=== PATIENT | male | born 1955 | race Asian ===

== ENCOUNTER 2017-03-23 22:11 | Inpatient (IN) | payer MEDICAID, OTHER ==
[~2017-03-23] VITALS: Ht 167.6 cm; Wt 75.5 kg
[2017-03-23] MEDS ORDERED: SODIUM CHLORIDE 0.9% 1,000 ML IV ONE (22:39)
[2017-03-23] MEDS ORDERED: MORPHINE SULFATE 4 MG/ML, 1ML ONE (22:57)
[2017-03-23] MEDS ORDERED: ONDANSETRON 2MG/ML, 2ML ONE (22:57)
[2017-03-23] MEDS ORDERED: ONDANSETRON 2MG/ML, 2ML IVPush ONE (23:00)
[2017-03-23] MEDS ORDERED: SODIUM CHLORIDE FLUSH 10ML SYR IVF ONE (23:00)
[2017-03-23] MEDS ORDERED: MORPHINE SULFATE 4 MG/ML, 1ML IVPush PRN (23:00)
[2017-03-23] MEDS ORDERED: SODIUM CHLORIDE 0.9% 1,000ML IVBOLUS ONE (23:00)
[2017-03-23 23:35] LABS: BLOOD UREA NITROGEN 25 mg/dL (7-18)
[2017-03-23 23:36] LABS: ASPARTATE AMINO TRANSFERASE 42 U/L (15-37)
[2017-03-23 23:40] LABS: DIFF TOTAL CELLS COUNTED 100 CELL DIFF
[2017-03-23 23:42] LABS: VERIFY COUNTS? YES
[2017-03-23 23:43] LABS: LARGE PLATELETS 1+
[2017-03-24] MEDS ORDERED: CEFTRIAXONE 1,000 MG in SODIUM CHLORIDE 0.9% 50 ML IV ONE
[2017-03-24] MEDS ORDERED: METRONIDAZOLE PMX 500MG/100ML 100 ML ONE (00:08)
[2017-03-24] MEDS ORDERED: CEFTRIAXONE PMX 1GM/50ML 50 ML ONE (00:08)
[2017-03-24] MEDS ORDERED: OMNIPAQUE 350 MG/ML, 100ML BOTTLE ONE (00:27)
[2017-03-24] MEDS ORDERED: METRONIDAZOLE PMX 500MG/100ML 100 ML IV ONE (00:30)
[2017-03-24] MEDS ORDERED: SODIUM CHLORIDE 0.9% 1,000ML IVBOLUS ONE ×2 (00:30→02:00)
[2017-03-24] MEDS ORDERED: HEPARIN 25,000 UNITS/500ML PMX 500 ML IV PRN (01:30)
[2017-03-24] MEDS ORDERED: HEPARIN 5,000 UNITS/ML, 1ML IV ONE (01:30)
[2017-03-24] MEDS ORDERED: HEPARIN 5,000 UNITS/ML, 1ML ONE (01:38)
[2017-03-24] MEDS ORDERED: HEPARIN 25,000 UNITS/500ML PMX 500 ML ONE (01:38)
[2017-03-24] MEDS ORDERED: BISACODYL 10 MG SUPP PR PRN (02:00)
[2017-03-24] MEDS ORDERED: morphine SULFATE 10 MG/ML, 1ML IVPush PRN (02:00)
[2017-03-24] MEDS ORDERED: GLUCAGON 1 MG IM PRN (02:00)
[2017-03-24] MEDS ORDERED: ONDANSETRON 2MG/ML, 2ML IVPush PRN (02:00)
[2017-03-24] MEDS ORDERED: ACETAMINOPHEN 325 MG TABLET PO PRN (02:00)
[2017-03-24] MEDS ORDERED: DEXTROSE 50%, 50ML SYRINGE IVPush PRN (02:00)
[2017-03-24] MEDS ORDERED: DEXTROSE 4 GM TAB.CHEW PO PRN (02:00)
[2017-03-24] MEDS ORDERED: LIDOCAINE 1%, 20ML ONE (02:08)
[2017-03-24] MEDS: NS + 20MEQ KCL 1,000 ML IV SCH ×2 (03:40→11:41)
[2017-03-24] MEDS: MEROPENEM 1 GM in SODIUM CHLORIDE 0.9% 50 ML IV SCH ×3 (03:40→17:31)
[2017-03-24] MEDS: INSULIN ASPART 100 UNITS/ML, PEN SQ-INSULIN SCH ×5 (03:42→21:16)
[2017-03-24 05:26] LABS: BLOOD UREA NITROGEN 19 mg/dL (7-18)
[2017-03-24] MEDS ORDERED: ASPIRIN 325 MG TABLET PO ONE (05:30)
[2017-03-24 06:27] LABS: IS PT STATUS REG ER OR PRE ER? NO
[2017-03-24] MEDS: SODIUM CHLORIDE FLUSH 10ML SYR IVF SCH ×2 (09:53→21:16)
[2017-03-24] MEDS: HEPARIN 5,000 UNITS/ML, 1ML IV PRN ×2 (10:45→17:25)
[2017-03-24 10:46] LABS: IS PT STATUS REG ER OR PRE ER? NO
[2017-03-24 11:17] LABS: DIFF TOTAL CELLS COUNTED 100 CELL DIFF
[2017-03-24 11:39] LABS: VERIFY COUNTS? YES
[2017-03-24] MEDS ORDERED: VANCOMYCIN PER PHARMACY MC PRN (13:00)
[2017-03-24] MEDS ORDERED: PHARMACOKINETIC MONITORING MC PRN (13:30)
[2017-03-24] MEDS ORDERED: PHARMACOKINETIC CONSULTATION MC ONE (13:30)
[2017-03-24] MEDS ORDERED: VANCOMYCIN 1,500 MG in SODIUM CHLORIDE 0.9% 250 ML IV SCH (14:00)
[2017-03-25] MEDS: HEPARIN 5,000 UNITS/ML, 1ML IV PRN ×2 (01:01→07:05)
[2017-03-25] MEDS: MEROPENEM 1 GM in SODIUM CHLORIDE 0.9% 50 ML IV SCH ×2 (01:02→10:27)
[2017-03-25] MEDS: INSULIN ASPART 100 UNITS/ML, PEN SQ-INSULIN SCH ×4 (05:59→23:44)
[2017-03-25] MEDS: VANCOMYCIN 1,500 MG in SODIUM CHLORIDE 0.9% 250 ML IV SCH (06:17)
[2017-03-25] MEDS: SODIUM CHLORIDE FLUSH 10ML SYR IVF SCH ×2 (07:05→20:45)
[2017-03-25 07:20] LABS: DIFF TOTAL CELLS COUNTED 100 CELL DIFF
[2017-03-25 07:35] LABS: VERIFY COUNTS? YES
[2017-03-25] MEDS: SODIUM CHLORIDE 0.9% 1,000 ML IV SCH (10:27)
[2017-03-25 10:39] LABS: HEPATITIS C VIRUS ANTIBODY Nonreactive (Nonreactive)
[2017-03-25] MEDS ORDERED: FENTANYL PF 250 MCG/5ML ONE ×3 (13:35→15:43)
[2017-03-25] MEDS ORDERED: MIDAZOLAM 1 MG/ML, 2ML ONE (13:35)
[2017-03-25] MEDS ORDERED: ROCURONIUM 10 MG/ML ONE (14:10)
[2017-03-25] MEDS ORDERED: ONDANSETRON 2MG/ML, 2ML ONE (14:10)
[2017-03-25] MEDS ORDERED: PROPOFOL 10 MG/ML, 20ML ONE (14:10)
[2017-03-25] MEDS ORDERED: GLYCOPYRROLATE 0.2MG/1ML ONE (14:10)
[2017-03-25] MEDS ORDERED: NEOSTIGMINE 1 MG/ML, 10ML ONE (14:10)
[2017-03-25] MEDS ORDERED: HYDROmorphone 1 MG/ML, 1ML IV PRN (16:00)
[2017-03-25] MEDS ORDERED: EPHEDRINE 50 MG/ML, 1ML IVPush PRN (16:00)
[2017-03-25] MEDS ORDERED: ONDANSETRON 2MG/ML, 2ML IVPush PRN (16:00)
[2017-03-25] MEDS ORDERED: FENTANYL PF 100 MCG/2ML IV PRN (16:00)
[2017-03-25] MEDS ORDERED: MIDAZOLAM 1 MG/ML, 2ML IV PRN (16:00)
[2017-03-25] MEDS ORDERED: PROMETHAZINE 25 MG/ML, 1ML IV PRN (16:00)
[2017-03-25] MEDS: MEROPENEM 1 GM in SODIUM CHLORIDE 0.9% 100 ML IV SCH (17:24)
[2017-03-25] MEDS ORDERED: HEPARIN 25,000 UNITS/500ML PMX 500 ML ONE (19:56)
[2017-03-25] MEDS ORDERED: FENTANYL PF 2,500 MCG in SODIUM CHLORIDE 0.9% 200 ML IV PRN (20:00)
[2017-03-25] MEDS ORDERED: HEPARIN 5,000 UNITS/ML, 1ML IV ONE (21:00)
[2017-03-25] MEDS ORDERED: HEPARIN 25,000 UNITS/500ML PMX 500 ML IV PRN (21:00)
[2017-03-25] MEDS ORDERED: HEPARIN 5,000 UNITS/ML, 1ML IV PRN (21:00)
[2017-03-26] MEDS: VANCOMYCIN 1,500 MG in SODIUM CHLORIDE 0.9% 250 ML IV SCH (00:08)
[2017-03-26] MEDS: SODIUM CHLORIDE 0.9% 1,000 ML IV SCH ×3 (00:09→22:54)
[2017-03-26] MEDS: MEROPENEM 1 GM in SODIUM CHLORIDE 0.9% 100 ML IV SCH (02:29)
[2017-03-26 04:00] VITALS: BP 118/55
[2017-03-26 06:04] LABS: ASPARTATE AMINO TRANSFERASE 33 U/L (15-37); BLOOD UREA NITROGEN 18 mg/dL (7-18)
[2017-03-26 06:11] LABS: DIFF TOTAL CELLS COUNTED 100 CELL DIFF
[2017-03-26] MEDS: INSULIN ASPART 100 UNITS/ML, PEN SQ-INSULIN SCH ×4 (06:11→22:36)
[2017-03-26 07:37] LABS: VERIFY COUNTS? YES
[2017-03-26] MEDS: SODIUM CHLORIDE FLUSH 10ML SYR IVF SCH ×2 (09:00→22:52)
[2017-03-26] MEDS ORDERED: ARGATROBAN/NACL 50 MG/50 ML 50 ML IV SCH (10:00)
[2017-03-26] MEDS: PIPERACILLIN/TAZO/PMX 3.375GM 50 ML IV SCH ×3 (10:53→22:52)
[2017-03-26 13:13] VITALS: BP 124/69
[2017-03-26] MEDS: ARGATROBAN/NACL 50 MG/50 ML 50 ML IV SCH ×2 (15:52→23:43)
[2017-03-26 16:06] VITALS: BP 124/65
[2017-03-26 18:58] VITALS: BP 114/54
[2017-03-27 02:14] VITALS: BP 132/66
[2017-03-27 05:07] LABS: ASPARTATE AMINO TRANSFERASE 46 U/L (15-37); BLOOD UREA NITROGEN 16 mg/dL (7-18)
[2017-03-27] MEDS: PIPERACILLIN/TAZO/PMX 3.375GM 50 ML IV SCH ×4 (05:16→22:55)
[2017-03-27] MEDS: INSULIN ASPART 100 UNITS/ML, PEN SQ-INSULIN SCH ×4 (05:17→20:40)
[2017-03-27] MEDS: SODIUM CHLORIDE 0.9% 1,000 ML IV SCH ×3 (05:20→17:17)
[2017-03-27 05:54] LABS: DIFF TOTAL CELLS COUNTED 100 CELL DIFF
[2017-03-27 05:57] LABS: VERIFY COUNTS? YES
[2017-03-27 05:58] LABS: ANISOCYTOSIS 1+
[2017-03-27 06:28] VITALS: BP 129/61
[2017-03-27] MEDS ORDERED: OXYcodone 5 MG/5 ML ORAL.SOL UDC PO PRN (09:30)
[2017-03-27] MEDS: ARGATROBAN/NACL 50 MG/50 ML 50 ML IV SCH (09:55)
[2017-03-27] MEDS: FAMOTIDINE 20 MG TABLET PO SCH ×2 (11:45→20:39)
[2017-03-27] MEDS: SODIUM CHLORIDE FLUSH 10ML SYR IVF SCH ×2 (11:45→20:38)
[2017-03-27 13:27] VITALS: BP 135/73
[2017-03-27 20:36] VITALS: BP 144/82
[2017-03-28 01:54] VITALS: BP 132/72
[2017-03-28] MEDS: ARGATROBAN/NACL 50 MG/50 ML 50 ML IV SCH ×2 (04:50→10:00)
[2017-03-28] MEDS: PIPERACILLIN/TAZO/PMX 3.375GM 50 ML IV SCH ×4 (04:52→23:12)
[2017-03-28 05:07] LABS: BLOOD UREA NITROGEN 12 mg/dL (7-18)
[2017-03-28 05:13] LABS: ASPARTATE AMINO TRANSFERASE 43 U/L (15-37)
[2017-03-28] MEDS: INSULIN ASPART 100 UNITS/ML, PEN SQ-INSULIN SCH ×4 (05:18→23:17)
[2017-03-28 07:18] VITALS: BP 123/72
[2017-03-28] MEDS: SODIUM CHLORIDE FLUSH 10ML SYR IVF SCH ×2 (09:35→20:29)
[2017-03-28] MEDS: FAMOTIDINE 20 MG TABLET PO SCH ×2 (09:35→20:29)
[2017-03-28] MEDS ORDERED: POTASSIUM CHLORIDE 40 MEQ in SODIUM CHLORIDE 0.9% 500 ML IV ONE (12:00)
[2017-03-28 12:14] VITALS: BP 114/68
[2017-03-28 20:19] VITALS: BP 123/57
[2017-03-28] MEDS: SODIUM CHLORIDE 0.9% 1,000 ML IV SCH (23:19)
[2017-03-29 02:23] VITALS: BP 126/67
[2017-03-29] MEDS: ARGATROBAN/NACL 50 MG/50 ML 50 ML IV SCH ×2 (03:32→18:12)
[2017-03-29] MEDS: INSULIN ASPART 100 UNITS/ML, PEN SQ-INSULIN SCH ×4 (05:30→23:19)
[2017-03-29 05:41] LABS: BLOOD UREA NITROGEN 9 mg/dL (7-18)
[2017-03-29] MEDS: PIPERACILLIN/TAZO/PMX 3.375GM 50 ML IV SCH ×4 (05:50→23:17)
[2017-03-29 07:05] VITALS: BP 108/68
[2017-03-29] MEDS ORDERED: POTASSIUM CHLORIDE 20 MEQ TAB.ER.PRT PO ONE (08:30)
[2017-03-29] MEDS: FAMOTIDINE 20 MG TABLET PO SCH ×2 (09:35→20:35)
[2017-03-29] MEDS: SODIUM CHLORIDE FLUSH 10ML SYR IVF SCH ×2 (09:35→20:35)
[2017-03-29] MEDS: FUROSEMIDE 20 MG TABLET PO SCH ×2 (10:38→20:35)
[2017-03-29] MEDS: SODIUM CHLORIDE 0.9% 1,000 ML IV SCH (10:38)
[2017-03-29] MEDS ORDERED: POTASSIUM CHLORIDE 40 MEQ in SODIUM CHLORIDE 0.9% 500 ML IV ONE (12:00)
[2017-03-29 13:00] VITALS: BP 113/81
[2017-03-29 14:07] LABS: ANA DIRECT Negative (Negative); COMPLEMENT C3 140 mg/dL (82-167); COMPLEMENT C4 26 mg/dL (14-44); INTERMYOFIBRILLAR AB Negative (Neg:<1:20); MITOCHONDRIAL (M2) AB 5.3 Units (0.0-20.0); PARIETAL CELL AB 2.8 Units (0.0-20.0); PROTEINASE 3 (PR-3) AB <3.5 U/mL (0.0-3.5); RA LATEX TURBIDITY <10.0 IU/mL (0.0-13.9); SARCOLEMMA AB Negative (Neg:<1:20); SJOGREN'S SS-A AB <0.2 AI (0.0-0.9); STRIATION AB Negative (Neg:<1:40); THYROID PEROXIDASE (TPO) AB 325 IU/mL (0-34)
[2017-03-29 20:32] VITALS: BP 143/75
[2017-03-29] MEDS: POTASSIUM CHLORIDE 10 MEQ TABLET.ER PO SCH (20:35)
[2017-03-30 02:50] VITALS: BP 130/73
[2017-03-30] MEDS: SODIUM CHLORIDE 0.9% 1,000 ML IV SCH (05:13)
[2017-03-30] MEDS: PIPERACILLIN/TAZO/PMX 3.375GM 50 ML IV SCH ×4 (05:13→23:04)
[2017-03-30 06:03] LABS: BLOOD UREA NITROGEN 10 mg/dL (7-18)
[2017-03-30] MEDS: INSULIN ASPART 100 UNITS/ML, PEN SQ-INSULIN SCH ×4 (06:16→23:05)
[2017-03-30] MEDS: ARGATROBAN/NACL 50 MG/50 ML 50 ML IV SCH ×4 (06:17→21:30)
[2017-03-30 06:42] VITALS: BP 122/74
[2017-03-30] MEDS: SODIUM CHLORIDE FLUSH 10ML SYR IVF SCH ×2 (08:13→21:34)
[2017-03-30] MEDS: FAMOTIDINE 20 MG TABLET PO SCH ×2 (08:13→21:34)
[2017-03-30] MEDS: POTASSIUM CHLORIDE 10 MEQ TABLET.ER PO SCH ×2 (08:14→21:34)
[2017-03-30] MEDS: FUROSEMIDE 20 MG TABLET PO SCH ×2 (08:14→21:34)
[2017-03-30] MEDS ORDERED: ARGATROBAN/NACL 50 MG/50 ML 50 ML IV SCH ×2 (10:00→19:00)
[2017-03-30 14:23] VITALS: BP 99/69
[2017-03-30 18:40] VITALS: BP 94/59
[2017-03-31 02:16] VITALS: BP 109/64
[2017-03-31] MEDS: ARGATROBAN/NACL 50 MG/50 ML 50 ML IV SCH (03:27)
[2017-03-31] MEDS: PIPERACILLIN/TAZO/PMX 3.375GM 50 ML IV SCH ×4 (05:37→22:49)
[2017-03-31] MEDS: INSULIN ASPART 100 UNITS/ML, PEN SQ-INSULIN SCH ×4 (05:39→22:49)
[2017-03-31] MEDS ORDERED: ARGATROBAN 250 MG in SODIUM CHLORIDE 0.9% 250 ML IV SCH (07:30)
[2017-03-31] MEDS: POTASSIUM CHLORIDE 10 MEQ TABLET.ER PO SCH ×2 (09:01→20:25)
[2017-03-31] MEDS: SODIUM CHLORIDE FLUSH 10ML SYR IVF SCH ×2 (09:01→20:25)
[2017-03-31] MEDS: FUROSEMIDE 20 MG TABLET PO SCH ×2 (09:02→20:25)
[2017-03-31] MEDS: FAMOTIDINE 20 MG TABLET PO SCH ×2 (09:02→20:25)
[2017-03-31 09:04] VITALS: BP 101/65
[2017-03-31 13:49] VITALS: BP 127/73
[2017-03-31 16:06] LABS: FACTOR II DNA ANALYSIS Negative (.)
[2017-03-31] MEDS: SODIUM CHLORIDE 0.9% 1,000 ML IV SCH ×2 (19:30→23:05)
[2017-03-31 22:53] VITALS: BP 117/66
[2017-04-01 01:23] VITALS: BP 125/73
[2017-04-01] MEDS: INSULIN ASPART 100 UNITS/ML, PEN SQ-INSULIN SCH (05:18)
[2017-04-01] MEDS: PIPERACILLIN/TAZO/PMX 3.375GM 50 ML IV SCH (05:18)
[2017-04-01 05:55] LABS: BLOOD UREA NITROGEN 15 mg/dL (7-18)
[2017-04-01] MEDS ORDERED: ARGATROBAN 250 MG in SODIUM CHLORIDE 0.9% 250 ML IV SCH ×2 (05:57→13:00)
[2017-04-01] MEDS: SODIUM CHLORIDE FLUSH 10ML SYR IVF SCH (08:04)
[2017-04-01] MEDS: FAMOTIDINE 20 MG TABLET PO SCH (08:04)
[2017-04-01] MEDS: FUROSEMIDE 20 MG TABLET PO SCH (08:04)
[2017-04-01] MEDS: POTASSIUM CHLORIDE 10 MEQ TABLET.ER PO SCH (08:04)
[2017-04-01 09:00] VITALS: BP 122/72
[2017-04-01] MEDS ORDERED: [UNRECOGNIZED DRUG - REMARK] MC ONE (09:30)
[2017-04-01] MEDS ORDERED: METF500T4 PO (10:43)
[2017-04-01] MEDS ORDERED: LEVO750T26 PO (10:43)
[2017-04-01] MEDS ORDERED: APIX5TAB PO (10:43)
[2017-04-01] MEDS ORDERED: TRAM50TA2 PO (10:48)
[2017-04-01 23:06] LABS: APTT 31.2 sec (.); PROTHROMBIN TIME 12.5 sec (.)
== END 2017-04-01 14:00 | disposition home or self-care (01) | DRG 853 ==
LOC: ED 23:59 → EDIP 03-24 01:37 → CCU 03-24 03:07 → 5SO 03-26 13:17 → DCLOUNGE 04-01 13:08
PROC: 02HV33Z Insertion of Infusion Device into Superior Vena Cava, Percutaneous Approach (ICD-10-PCS; principal; 2017-03-23)
PROC: B548ZZA Ultrasonography of Superior Vena Cava, Guidance (ICD-10-PCS; 2017-03-23)
PROC: 0DTH0ZZ Resection of Cecum, Open Approach (ICD-10-PCS; 2017-03-25)
DX: A41.51 Sepsis due to Escherichia coli [E. coli] (principal); I81 Portal vein thrombosis; N17.0 Acute kidney failure with tubular necrosis; E43 Unspecified severe protein-calorie malnutrition; K65.1 Peritoneal abscess; E87.1 Hypo-osmolality and hyponatremia; R17 Unspecified jaundice; K63.0 Abscess of intestine; R18.8 Other ascites; E87.6 Hypokalemia; E11.65 Type 2 diabetes mellitus with hyperglycemia; F17.210 Nicotine dependence, cigarettes, uncomplicated; M10.9 Gout, unspecified; E86.0 Dehydration; N30.90 Cystitis, unspecified without hematuria; Z68.26 Body mass index [BMI] 26.0-26.9, adult; Z91.14 Patient's other noncompliance with medication regimen
CPT/HCPCS: 36415; 36556; 71010; 74177; 80048; 80053; 80074; 81001; 81240; 81241; 82247; 82248; 82378; 82436; 82570; 82962; 83036; 83516; 83520; 83605; 83690; 83735; 84100; 84133; 84145; 84300; 84439; 84443; 84484; 85025; 85300; 85301; 85520; 85598; 85610; 85613; 85670; 85730; 85732; 86038; 86146; 86147; 86160; 86225; 86235; 86255; 86256; 86301; 86376; 86431; 86850; 86900; 87015; 87040; 87070; 87075; 87077; 87081; 87086; 87102; 87116; 87186; 87205; 87206; 88307; 93005; 93306; 93975; 96365; 96367; 96375; J0696; J0883; J1644; J1815; J2185; J2250; J2405; J2543; J2704; J2710; J3010; J3370; J3480; J3490; Q9967; J2270; J7030; J7040; J7050